=== PATIENT | female | born 1960 | race Caucasian/White ===

== ENCOUNTER 2016-06-22 10:54 | Day surgery (SDC) | payer OTHER ==
[~2016-06-22 10:54] MED LIST: Buffered Lidocaine 1% SYR 3ML* 3 ML/SYR SYRINGE INTRADERM ONE
[2016-06-22] MEDS ORDERED: ceFAZolin 2 GM PREMIX (*) 2 GM/50 ML BAG IVPB ONE (11:04)
[2016-06-22] MEDS ORDERED: fentaNYL* 50 MCG/ML 2 ML VIAL (100 MCG VIAL) ONE (12:04)
[2016-06-22] MEDS ORDERED: Midazolam* 1 MG/ML 5 ML VIAL (5 MG) ONE (12:04)
[2016-06-22] MEDS ORDERED: Bupivacaine 0.25% SDV* 30 ML ONE (12:10)
[2016-06-22 13:38] VITALS: BP 117/75
== END 2016-06-22 13:34 | disposition home or self-care (01) ==
LOC: OREAST 10:54
PROVIDERS: ATTEND Plastic Surgery
DX: D21.11 Benign neoplasm of connective and other soft tissue of right upper limb, including shoulder (principal)
CPT/HCPCS: 88305; J0690; J2250; J3010